=== PATIENT | female | born 1930 | race Caucasian/White ===

== ENCOUNTER 2018-06-12 17:25 | Inpatient (IN) ==
[2018-06-12] MEDS ORDERED: cefTRIAXone 1,000 MG in SODIUM CHLORIDE 0.9% 100 ML IV STA (17:55)
[2018-06-12] MEDS ORDERED: ONDANSETRON 4 MG/2 ML VIAL IV STA (17:55)
[2018-06-12] MEDS ORDERED: MEPERIDINE 25 MG/1 ML VIAL IV STA (17:56)
[2018-06-12 18:17] LABS: Basophils % 0.4 % (0.0-0.8); Eosinophils # 0.1 10*3/uL (0.0-0.87); Hematocrit 37.8 VOL% (35.7-47.0); Hemoglobin 12.1 GM/DL (12.0-16.0); Immature Granulocytes % 0.5 %; Immature Granulocytes Absolute 0.05 #; Lymphocytes # 1.5 10*3/uL (1.4-4.0); Mean Corpuscular Hemoglobin 31 PG (27-34); Mean Corpuscular Volume 95.7 FL (87-102); Mean Platelet Volume 10.4 FL (9.6-12.0); Monocytes # 0.9 10*3/uL (0.11-0.8); Monocytes % 8.8 % (1.7-12.7); Neutrophils # 7.1 10*3/uL (1.4-7.4); Neutrophils % 73.3 % (38.7-73.9); Platelet Count 204 T/CUMM (130-400); Red Blood Count 3.95 MC/CUMM (3.8-5.5); Red Cell Distribution Width 13.5 % (9.3-17.3); White Blood Count 9.7 T/CUMM (4-12)
[2018-06-12 18:24] LABS: PT Patient Result 10.1 SECS; Partial Thromboplastin Time 23.8 SECS (0-40)
[2018-06-12 18:36] LABS: Albumin 3.3 G/DL (3.4-5.0); Bilirubin,Total 0.4 MG/DL (0.2-1.0); Calcium 8.5 MG/DL (8.5-10.1); Osmolality,Calculated 274.8 MOS/KG (273-304); Potassium 3.9 MMOL/L (3.5-5.1); Total Protein 7.5 G/DL (6.4-8.3)
[2018-06-12 18:37] LABS: Troponin I < 0.015 NG/ML (0.00-0.045)
[2018-06-12] MEDS ORDERED: traMADol 50 MG TABLET ONE (20:00)
[2018-06-12] MEDS ORDERED: traMADol 50 MG TABLET PO STA (20:00)
[2018-06-12] MEDS ORDERED: ONDANSETRON 4 MG/2 ML VIAL IV PRN (20:38)
[2018-06-12] MEDS: cefTRIAXone 2,000 MG in SYRINGE 1 EACH IV SCH (22:59)
[2018-06-12] MEDS: CARVEDILOL 3.125 MG TABLET PO SCH (23:05)
[2018-06-12] MEDS: SERTRALINE 25 MG TABLET PO SCH (23:05)
[2018-06-13] MEDS: CARVEDILOL 3.125 MG TABLET PO SCH ×2 (08:45→21:54)
[2018-06-13] MEDS: PANTOPRAZOLE 40 MG TABLET PO SCH (08:45)
[2018-06-13] MEDS: ISOSORBIDE MONONITRATE 30 MG TABLET PO SCH (08:45)
[2018-06-13] MEDS ORDERED: LIDOCAINE 1%/EPI INJ 20 ML VIAL INFILTRAT ONE (11:00)
[2018-06-13] MEDS ORDERED: LIDOCAINE 1%/EPI INJ 20 ML VIAL ONE (11:24)
[2018-06-13] MEDS ORDERED: traMADol 50 MG TABLET PO PRN (12:22)
[2018-06-13] MEDS ORDERED: ACETAMINOPHEN 325 MG TABLET PO PRN (12:22)
[2018-06-13] MEDS: SERTRALINE 25 MG TABLET PO SCH (21:54)
[2018-06-13] MEDS: cefTRIAXone 2,000 MG in SYRINGE 1 EACH IV SCH (21:55)
[2018-06-14] MEDS: PANTOPRAZOLE 40 MG TABLET PO SCH (08:00)
[2018-06-14] MEDS ORDERED: ASPIRIN CHEW 81 MG TABLET PO SCH (08:00)
[2018-06-14] MEDS: ISOSORBIDE MONONITRATE 30 MG TABLET PO SCH (08:00)
[2018-06-14] MEDS: CARVEDILOL 3.125 MG TABLET PO SCH (08:01)
[2018-06-14] MEDS ORDERED: LOSARTAN 50 MG TABLET PO SCH (12:30)
[2018-06-14 14:28] VITALS: BP 154/73
[2018-06-14] MEDS ORDERED: INFLUENZA VIRUS VACCINE 0.5 ML SYRINGE IM ONE (16:38)
[2018-06-14] MEDS ORDERED: CLOPIDOGREL 75 MG TABLET PO SCH (18:00)
== END 2018-06-14 16:45 | disposition home health service (06) | DRG 605 ==
LOC: N.ED 17:25 → N.EDINP 21:21 → N.TELES 21:53
PROVIDERS: ADMIT Family Medicine; ATTEND Family Medicine